=== PATIENT | female | born 1950 | race Caucasian/White ===

== ENCOUNTER → 2019-11-19 08:42 | Outpatient (BNVA) | payer MEDICARE, MEDICAID, SELFPAY | PROVIDERS: Family Provider Internal Medicine; PCP Nurse Practitioner Family; Visit Provider Internal Medicine | DX: E03.9 Hypothyroidism, unspecified (principal); E05.00 Thyrotoxicosis with diffuse goiter without thyrotoxic crisis or storm | CPT/HCPCS: 84443 ==

== ENCOUNTER 2020-03-09 20:00 | Outpatient (CLI) | payer MEDICARE, MEDICAID, SELFPAY | END 2020-03-09 20:01 | disposition home or self-care (01) | LOC: SLEEP 03-10 10:00 | PROVIDERS: Family Provider Internal Medicine; PCP Nurse Practitioner Family; Visit Provider Internal Medicine | DX: G47.10 Hypersomnia, unspecified (principal); G47.33 Obstructive sleep apnea (adult) (pediatric); R06.83 Snoring; R53.83 Other fatigue | CPT/HCPCS: 95811 ==

== ENCOUNTER 2020-05-31 08:54 | Outpatient (CLI) | payer MEDICARE, MEDICAID, SELFPAY ==
--- NOTE | 2020-05-31 09:01 | MM_ITS ---
WS: [id number] BILATERAL SCREENING DIGITAL MAMMOGRAM WITH CAD HISTORY: SCREENING COMPARISON: 12/17/2018 and 08/22/2017 Bilateral CC and MLO views submitted. Computer aided detection analyzed. Breast composition: There are scattered areas of fibroglandular density. Linear asymmetry in the mid LEFT breast just lateral to the nipple line. Not definitely visualized through the fibroglandular den sities on the lateral projection. This area has become more conspicuous overlying more recent studies . MM/[id number] IMPRESSION: BI-RADS: 0-Incomplete: Need additional imaging evaluation FOLLOW UP: Need Additional Imaging LEFT breast: Spot compression views (CC and MLO). True ML. Ultrasound to follow if abnormality persists.
== END 2020-05-31 08:55 | disposition home or self-care (01) ==
LOC: RADSHAW 08:58
PROVIDERS: PCP Internal Medicine; Visit Provider Internal Medicine
DX: Z12.31 Encounter for screening mammogram for malignant neoplasm of breast (principal); N64.89 Other specified disorders of breast
CPT/HCPCS: 77067

== ENCOUNTER → 2020-06-08 14:00 | Outpatient (BNVA) | payer MEDICARE, MEDICAID, SELFPAY | PROVIDERS: PCP Internal Medicine; Visit Provider Dermatology | DX: D48.9 Neoplasm of uncertain behavior, unspecified (principal) | CPT/HCPCS: 88304 ==

== ENCOUNTER 2020-06-28 10:11 | Outpatient (CLI) | payer MEDICARE, MEDICAID, SELFPAY ==
--- NOTE | 2020-06-28 10:18 | MM_ITS ---
WS: [id number] Left breast diagnostic digital mammogram, 06/28/2020 Clinical Data: LT BREAST ASYMMETRY Comparison: 05/31/2020, 12/17/2018, 08/22/2017, 08/06/2016, 04/18/2015, 04/06/2014, 10/10/2007. Findings: Additional left breast views with compression and mediolateral projection show no abnormal breast tis ra. The asymmetry noted on the cc view on the previous study is no longer present. Only normal breas [place] tissue [place] seen MM/[id number] Impression: 1. Negative additional views of the left breast. 2. Return to annual screening mammograms. BIRADS: 1-Negative FOLLOW UP: 1 Year Follow-up The CAD price checker was used.
== END 2020-06-28 10:12 | disposition home or self-care (01) ==
PROVIDERS: Visit Provider Internal Medicine
DX: N64.89 Other specified disorders of breast (principal)
CPT/HCPCS: 77065

== ENCOUNTER 2021-08-28 07:06 | Outpatient (CLI) | payer MEDICARE, MEDICAID, SELFPAY ==
--- NOTE | 2021-08-28 07:12 | MM_ITS ---
WS: [id number] BILATERAL DIGITAL SCREENING MAMMOGRAPHY WITH CAD CLINICAL INFORMATION: SCREENING HISTORY: Screening mammogram. No current complaints. COMPARISON: June 28, 2020 TECHNIQUE: Bilateral CC and MLO views. FINDINGS: Scattered fibroglandular densities bilaterally. Punctate and lucent centered calcifications. Vascular calcifications. No suspicious focal mass, asymmetry, calcifications, or architectural distortion. No evidence of malignancy. MM/[id number] IMPRESSION: BI-RADS: 2-Benign FOLLOW UP: 1 Year Follow-up Recommend return to annual screening mammography.
== END 2021-08-28 07:07 | disposition home or self-care (01) ==
LOC: RADSHAW 07:08
PROVIDERS: PCP Internal Medicine; Visit Provider Internal Medicine
DX: Z12.31 Encounter for screening mammogram for malignant neoplasm of breast (principal)
CPT/HCPCS: 77067

== ENCOUNTER → 2021-11-20 11:16 | Outpatient (BNVA) | payer MEDICARE, MEDICAID, SELFPAY | PROVIDERS: PCP Internal Medicine; Visit Provider Internal Medicine | DX: E04.1 Nontoxic single thyroid nodule (principal); E05.00 Thyrotoxicosis with diffuse goiter without thyrotoxic crisis or storm | CPT/HCPCS: 84443 ==

== ENCOUNTER 2021-12-30 07:08 | Emergency (ER) | payer MEDICARE, MEDICAID, SELFPAY ==
[2021-12-30 07:18] VITALS: BP 185/117; PULSE 91; RESP 16; O2SAT 95; BMI 23.6
--- NOTE | 2021-12-30 07:20 | W.ED.NEUROSD ---
HPI - Neuro Symptoms/Deficit General: Chief Complaint: Neuro Symptoms/Deficit Stated Complaint: thinks she had stroke Time Seen by Provider: 12/30/21 07:14 Source: patient Mode of arrival: ambulatory Limitations: no limitations History of Present Illness: 71-year-old female presents to the emergency room with complaints of right-sided weakness that began yesterday. She is approximately 11 hours out from onset of symptoms last night at 8:00 in the were also present at 3 AM this morning when she woke up. States they are improving some now. She denies any chest pain. Onset (ago): hour(s) Time: 07:08 Last Observed Normal: 08:00 Location: right arm, right leg and ataxia History of same: Yes Severity: mild Quality: weak Relieving factors: none Exacerbating factors: none Associated symptoms: Deny chest pain, cough, diaphoresis, fevers/chills, headache(s), anorexia, malaise, nausea, seizures, short of breath, syncope, tingling, vertigo, vomiting or weakness Treatments Prior to Arrival: none Review of Systems Const: Denies: fever(s), chills, body aches, change in appetite, malaise or diaphoresis ENMT: Denies: throat pain, ear or mastoid pain, nasal discharge or nasal congestion Card: Denies: chest pain, palpitations, irregular heart rhythm or syncope Resp: Denies: dyspnea, productive cough or non-productive cough GI: Denies: abdominal pain, nausea or vomiting : Denies: flank pain, difficulty voiding, dysuria, urinary frequency or urinary urgency Musc: Denies: neck pain or back pain Skin/Breast: Denies: rash or pruritus Neuro: Reports: weakness in extremities; Denies: headache(s) or vertigo PFSH ED PFSH: Medical History GERD (gastroesophageal reflux disease) Graves disease History of colon polyps Hypertension Sarcoidosis of lung Sinusitis, acute Thyroid nodule Surgical History Hx of foot surgery Hx of hysterectomy Hx of thyroidectomy Social History Smoking and tobacco status: never smoked Second hand smoke exposure: No Alcohol intake: never Lives independently: Yes Household members: children Marital status: Current occupational status: retired History of recent travel: No Current gender identity: Female NIH stroke score NIHSS: Level Of Consciousness - 1a: 0 Level Of Consciousness Questions - 1b: Both Correct Level Of Consciousness Commands - 1c: Both Correct Best Gaze - 2: Normal Visual [place] - 3: No Visual Loss Facial Palsy - 4: Normal Motor Arm Right - 5: Drift Motor Arm Left - 5: No Drift Motor Leg Right - 6: Drift Motor Leg Left - 6: No Drift Limb Ataxia - 7: Present In One Limb Sensory - 8: Normal Best Language - 9: No Aphasia Dysarthia - 10: Normal Extinction And Inattention - 11: 0 Score: Total Score: 3 Physical Exam Const: COMMON NORMALS: no acute distress GENERAL APPEARANCE: cooperative and comfortable ORIENTATION/CONSCIOUSNESS: Yes awake, Yes oriented to person, Yes oriented to place and Yes oriented to time HENMT: COMMON NORMALS: normocephalic, atraumatic and hearing grossly normal bilaterally HEAD & SCALP: normocephalic and atraumatic Neck/C-Spine: COMMON NORMALS: no JVD Resp: COMMON NORMALS: normal respiratory effort, No retractions, No use of accessory muscles and clear to auscultation bilaterally AUSCULTATION: clear to auscultation bilaterally Cardio: COMMON NORMALS: no JVD, regular rate, regular rhythm and No murmurs present (Cardio) RATE: regular rate RHYTHM: regular rhythm GI: COMMON NORMALS: Soft to palpation and No hepatosplenomegaly present AUSCULTATION: Yes normoactive bowel sounds PALPATION: Yes Soft to palpation, No Tenderness to palpation present (GI), No Guarding due to palpation present (GI) and Yes No hepatosplenomegaly present Extremity: COMMON NORMALS: normal to inspection, capillary refill normal, no clubbing, cyanosis or edema, no calf tenderness and no pedal edema Neuro: SENSORIUM/ORIENTATION: Yes oriented to person, Yes oriented to place and Yes oriented to time OTHER: See NIH scoring Skin: COMMON NORMALS: no rashes or lesions noted GENERAL SKIN EXAM: no rashes or lesions noted Course Vital Signs: Vital signs: Vital Signs Pulse Rate 83 12/30/21 10:21 Respiratory Rate 14 12/30/21 10:21 Blood Pressure 170/86 12/30/21 10:21 Pulse Oximetry 95 12/30/21 10:21 MDM - Neuro Symptoms/Deficit Medical Decision Making Patient is a NIH score of 3 she is well outside of any range for intervention was thrombolytics. Her score is too low for evaluation for thrombectomy. Discussed with patient options for further evaluation. Patient would like to go home. I recommend that she start on a statin she declined she says she has been on it before and has stomach upset does not want to restart them. Asked her to reconsider given stomach upset could be managed but progression to a more debilitating stroke may not be recoverable. She expressed understanding this and still declines to start the statin. We did add clopidogrel and have her stop the aspirin when she was willing to do. Her blood pressure is mildly elevated but will allow permissive hypertension at this time discussed this with her as well. Continue her current medications and follow-up with her primary care doctor within a week to reevaluate blood pressure. We will set her up for outpatient MRI echocardiogram carotid duplex and 48-hour Holter return if she has further problems or changes symptoms. Medical Records I reviewed the patient's medical records. Lab Data I reviewed the patient's lab results. : 12/30/21 07:29 12/30/21 07:[address] 12/30/21 07:21 IMPRESSION: No acute intracranial abnormality. Please note that MRI is more sensitive for early changes of acute ischemia. ASSESSMENT: ASPECTS ([place] Stroke Program Early CT Score) is 10. Chest X-Ray 12/30/21 07:33 IMPRESSION: No acute cardiopulmonary abnormality. Laboratory Results WBC 9.2 10^3/uL (4.0-10.0) 12/30/21 07: RBC 4.88 10^6/uL (4.1-5.3) 12/30/21 07: Hgb 13.9 g/dL (11.5-15.3) 12/30/21 07: Hct 42.6 % (37.0-47.0) 12/30/21: MCV 87.3 fl (81-99) 12/30/21 07: MCH 28.5 pg (28.0-34.0) 12/30/21 07: MCHC 32.6 g/dL (30.0-36.0) 12/30/21: RDW 14.8 % (12.1-15.1) 12/30/21 07: Plt Count 470 10^3/cmm (130-400) H 12/30/21 07: MPV 8.8 fL (7.4-10.4) 12/30/21 07: Neut % (Auto) 75.9 % 12/30/21 07: Lymph % (Auto) 18.4 % 12/30/21 07: [place] % (Auto) 3.8 % 12/30/21 07: Eos % (Auto) 0.1 % 12/30/21 07: Baso % (Auto) 0.2 % 12/30/21: Neut # (Auto) 7.00 10^3/uL (1.8-7.7) 12/30/21 07: Lymph # (Auto) 1.7 10^3/uL (0.8-4.8) 12/30/21 07: [place] # (Auto) 0.4 10^3/uL (0.2-0.9) 12/30/21 07: Eos # (Auto) 0.0 10^3/uL (0.0-0.8) 12/30/21 07: Baso # (Auto) 0.0 10^3/uL (0.0-0.1) 12/30/21 07: Nucleated RBC % (auto) 0 % 12/30/21: Nucleated RBCs # 0.0 /100WBC 12/30/21 07: PT 13.30 SECONDS (12.1-14.9) 12/30/21 08:09 INR 0.98 (0.8-1.2) 12/30/21 08:09 APTT 22.9 SECONDS (23.9-36.7) L 12/30/21 08:09 Sodium 142 mmol/L (136-145) 12/30/21 07: Potassium 3.3 mmol/L (3.5-5.1) L 12/30/21 07: Chloride 102 mmol/L (98-107) 12/30/21 07: Carbon Dioxide 26 mmol/L (22-29) 12/30/21 07: Anion Gap 17.3 (5-19) 12/30/21 07:29 BUN 19 mg/dL (8-23) 12/30/21 07:29 Creatinine 0.7 mg/dL (0.5-0.9) 12/30/21 07:29 GFR Calculation Not Reportable 12/30/21 07:29 Glucose 105 mg/dL (65-115) 12/30/21 07:29 POC Glucose 95 mg/dL (70-110) 12/30/21 08:14 Calculated Osmolality 297 mOsm/kg (285-295) H 12/30/21 07:29 Calcium 10.3 mg/dL (8.5-10.5) 12/30/21 07:29 Total Bilirubin 0.4 mg/dL (0.15-1.2) 12/30/21 07:29 AST 12 U/L (0-32) 12/30/21 07:29 ALT 15 U/L (0-33) 12/30/21 07:29 Alkaline Phosphatase 112 IU/L (35-105) H 12/30/21 07:29 Total Protein 7.5 g/dL (6.6-8.7) 12/30/21 07:29 Albumin 4.6 g/dL (3.5-5.2) 12/30/21 07:29 Globulin 2.9 g/dL (1.3-4.6) 12/30/21 07:29 Urine Color Yellow (Yellow) 12/30/21 08:38 Urine Appearance Clear (CLEAR) 12/30/21 08:38 Urine pH 8 (5-7) H 12/30/21 08:38 Ur Specific [place] 1.010 (1.005-1.030) 12/30/21 08:38 Urine Protein Neg (Negative) 12/30/21 08:38 Urine Glucose (UA) Norm (Normal) 12/30/21 08:38 Urine Ketones Negative (Negative) 12/30/21 08:38 Urine Blood Neg (Negative) 12/30/21 08:38 Urine Nitrate Negative (Negative) 12/30/21 08:38 Urine Bilirubin Neg (Negative) 12/30/21 08:38 Prot Sulfosalicylic Acd Negative (Negative) 12/30/21 08:38 Urine Urobilinogen Norm mg/dL (Negative) 12/30/21 08:38 Ur Leukocyte Esterase Negative (Negative) 12/30/21 08:38 Urine Opiates Screen Negative ng/mL (Negative) 12/30/21 08:38 Ur Barbiturates Screen Negative ng/mL (Negative) 12/30/21 08:38 Ur Phencyclidine Scrn Negative ng/mL (Negative) 12/30/21 08:38 Ur Amphetamines Screen Negative ng/mL (Negative) 12/30/21 08:38 U Benzodiazepines Scrn Negative ng/mL (Negative) 12/30/21 08:38 Urine Cocaine Screen Negative ng/mL (Negative) 12/30/21 08:38 U Marijuana (THC) Screen Negative ng/mL (Negative) 12/30/21 08:38 Discharge Plan Discharge Patient Disposition: Home Clinical Impression: Acute CVA (cerebrovascular accident) Condition: Stable Prescriptions: New clopidogrel 75 mg tablet 75 mg PO DAILY Qty: 30 0RF Discontinued aspirin [Adult Low Dose Aspirin] 81 mg tablet,delayed release (DR/EC) 81 mg PO DAILY 0RF No Action albuterol sulfate [Ventolin HFA] 90 mcg/actuation HFA aerosol inhaler 2 puff INHALATION Q6H PRN0RF alprazolam [Xanax] 0.25 mg tablet 0.25 mg PO .HS 0RF Calcium 600 + D(3) 600-125 mg-unit tablet 1 tab PO DAILY 0RF meloxicam 15 mg tablet 15 mg PO DAILY PRN (Reason: arthritis pain) Qty: 60 3RF pantoprazole 40 mg tablet,delayed release (DR/EC) 40 mg PO DAILY Qty: 90 3RF fluticasone propion-salmeterol [Advair Diskus] 500-50 mcg/dose blister with device 1 inh INHALATION BID Qty: 60 3RF levothyroxine 137 mcg tablet 137 mcg PO DAILY Qty: 90 0RF Incruse Ellipta 62.5 mcg/actuation blister with device 1 inh INHALATION DAILY 30 Days Qty: 30 3RF diltiazem HCl [Cardizem CD] 240 mg capsule,extended release 24hr 480 mg PO QAM Qty: 60 3RF prednisone 10 mg tablet See Rx Instructions .Route .COMPLEX Qty: 1 0RF Rx Instructions: Begin at 40 mg daily and reduce by 10 every three days till gone Dispense QS; doxycycline hyclate 100 mg capsule 100 mg PO BID Qty: 20 0RF Discharge Orders: Discharge ED (Routine); Ordered 12/30/21 Ordered By: Michael Walter Referrals: Micheal Sheppard MD [Primary Care Provider] - Discharge Diet: Usual diet Discharge Activity: Increase activity as tolerated Patient Instructions: Opioid Safety Activity Restrictions/Additional Instructions: environmental health manager will make arrangements for you to have outpatient testing including an MRI of the head, echocardiogram, carotid duplex and a Holter monitor. Stop aspirin start Plavix return to the emergency room for worsening problems Coding Level of Care Code ED Prize Fighter for [employer]
--- NOTE | 2021-12-30 07:21 | ECG_ITS ---
[facility] Test Date: 2021-12-30 Pat Name: Lilly Wyatt Department: Room: Gender: Female Inbound Sales Advisor: : 1950 Requested By: Michael Smith Order Number: [id number] Riki MD: Belgica Ramesh M.D. Measurements Intervals [place] Rate: 85 P: 48 MN: 199 QRS: -35 QRSD: 108 T: 81 QT: 370 QTc: 440 Interpretive Statements SINUS RHYTHM LEFT AXIS DEVIATION [QRS AXIS < -30] INCOMPLETE RIGHT BUNDLE BRANCH BLOCK [90+ ms QRS DURATION, TERMINAL R IN V1/V2, 40+ ms S IN I/aVL/V4/V5/V6] Compared to ECG 06/09/2018 12:24:36 First degree AV block no longer present Electronically Signed On 12-30-2021 21:58:38 CDT by Belgica Ramesh M.D. [id number]
--- NOTE | 2021-12-30 07:21 | CTR_ITS ---
PROCEDURE INFORMATION: Exam: CT Head Without Contrast Exam date and time: 12/30/2021 7:52 AM Age: 71 years old Clinical indication: Dizziness and weakness, extremity; Right; Additional info: Symptoms of acute stroke TECHNIQUE: Imaging protocol: Computed tomography of the head without contrast. Radiation optimization: All CT scans at this facility use at least one of these dose optimization techniques: automated exposure control; mA and/or kV adjustment per patient size (includes targeted exams where dose is matched to clinical indication); or iterative reconstruction. Other technique: STROKE PROTOCOL was implemented. COMPARISON: CT neck w con* [id number] 04/01/2017 5:56 AM RADIATION DOSE METRICS: Total DLP (mGy-cm): 840.92 FINDINGS: Brain: Patchy hypoattenuation in the periventricular and subcortical white matter, consistent with chronic small vessel ischemia. No CT evidence of acute ischemia. No acute hemorrhage. No mass effect. Cerebral ventricles: No ventriculomegaly. Paranasal sinuses: Visualized sinuses are unremarkable. No fluid levels. Mastoid air cells: Visualized mastoid air cells are well aerated. Bones/joints: Unremarkable. No acute fracture. Soft tissues: Unremarkable. CT/CT head wo con* [id number] IMPRESSION: No acute intracranial abnormality. Please note that MRI is more sensitive for early changes of acute ischemia. ASSESSMENT: ASPECTS ([place] Stroke Program Early CT Score) is 10.
--- NOTE | 2021-12-30 07:33 | XRR_ITS ---
PROCEDURE INFORMATION: Exam: XR Chest Exam date and time: 12/30/2021 7:40 AM Age: 71 years old Clinical indication: Cough and dyspnea; Additional info: Dyspnea/cough TECHNIQUE: Imaging protocol: XR of the chest. Views: 1 view. COMPARISON: CR Chest 1 [place] [id number] 04/01/2017 5:04 AM FINDINGS: Lungs: Streaky right basilar airspace opacity is favored to reflect atelectasis. There is also some mild perihilar scarring bilaterally. Pleural spaces: Unremarkable. No pleural effusion. No pneumothorax. Heart/Mediastinum: Unremarkable. No cardiomegaly. Bones/joints: Unremarkable. XR/XR chest 1V portable [id number] IMPRESSION: No acute cardiopulmonary abnormality.
[2021-12-30 07:43] LABS: Basophils % 0.2 %; Eosinophils % 0.1 %; Hematocrit 42.6 % (37.0-47.0); Hemoglobin 13.9 g/dL (11.5-15.3); Lymphocytes # 1.7 10^3/uL (0.8-4.8); Lymphocytes % 18.4 %; Mean Corpuscular HGB Conc 32.6 g/dL (30.0-36.0); Mean Corpuscular Hemoglobin 28.5 pg (28.0-34.0); Mean Corpuscular Volume 87.3 fl (81-99); Mean Platelet Volume 8.8 fL (7.4-10.4); Monocytes # 0.4 10^3/uL (0.2-0.9); Monocytes % 3.8 %; Neutrophils % 75.9 %; Nucleated Red Blood Cells % 0 %; Platelet Count 470 10^3/cmm (130-400); Red Blood Count 4.88 10^6/uL (4.1-5.3); Red Cell Distribution Width 14.8 % (12.1-15.1); White Blood Count 9.2 10^3/uL (4.0-10.0)
[2021-12-30 07:46] VITALS: BP 178/90
[2021-12-30 08:01] LABS: Alanine Aminotransferase 15 U/L (0-33); Albumin Level 4.6 g/dL (3.5-5.2); Alkaline Phosphatase 112 IU/L (35-105); Anion Gap 17.3 (5-19); Aspartate Amino Transferase 12 U/L (0-32); Blood Urea Nitrogen 19 mg/dL (8-23); Calcium 10.3 mg/dL (8.5-10.5); Carbon Dioxide 26 mmol/L (22-29); Chloride 102 mmol/L (98-107); Globulin 2.9 g/dL (1.3-4.6); Glucose 105 mg/dL (65-115); Osmolality Calculated 297 mOsm/kg (285-295); Potassium 3.3 mmol/L (3.5-5.1); Sodium 142 mmol/L (136-145); Total Bilirubin 0.4 mg/dL (0.15-1.2); Total Protein 7.5 g/dL (6.6-8.7)
[2021-12-30 08:17] LABS: Glucose Point of Care 95 mg/dL (70-110)
[2021-12-30 08:27] LABS: INR 0.98 (0.8-1.2)
[2021-12-30 08:28] LABS: Partial Thromboplastin Time 22.9 SECONDS (23.9-36.7)
--- NOTE | 2021-12-30 08:29 | PC.NURSE ---
Pt placed on continual cardiac, BP, and SpO2 monitoring.
[2021-12-30 09:16] LABS: Add Urine Microscopic? NO; Charge for UA Resulting for Rev
[2021-12-30 09:18] VITALS: BP 171/84; PULSE 82; RESP 13; O2SAT 93
[2021-12-30 09:24] LABS: Bilirubin Urine Neg (Negative); Blood Urine Neg (Negative); Glucose Urine UA Norm (Normal); Ketones Urine Negative (Negative); Leukocyte Esterase Urine Negative (Negative); Nitrate Urine Negative (Negative); Protein Urine Neg (Negative); Sulfosalicylic Acid Urine Negative (Negative); Urine Appearance Clear (CLEAR); Urine Color Yellow (Yellow); Urobilinogen Urine Norm (Negative); pH Urine 8 (5-7)
[2021-12-30 09:29] LABS: Amphetamines Screen Urine Negative (Negative); Barbiturates Screen Urine Negative (Negative); Benzodiazepines Screen Urine Negative (Negative); Cocaine Screen Urine Negative (Negative); Opiate Screen Urine Negative (Negative); PCP Screen Urine Negative (Negative); THC Screen Urine Negative (Negative)
[2021-12-30 10:21] VITALS: BP 170/86; PULSE 83; RESP 14; O2SAT 95
--- NOTE | 2022-01-01 14:50 | DCPLANNER ---
Addendum entered by Shaina Clemens 03/29/22 09:43: Patient had an MRI scheduled for 02.15.22 - patient did attend appointment Patient had an echo scheduled for 01.30.22 - patient did attend appointment. Addendum entered by Shaina Clemens 01/15/22 08:55: Patient had a follow up appointment scheduled for 01.08.22 for a 48 hour halter monitor - patient did attend appointment. Addendum entered by Shaina Clemens 01/11/22 14:57: Patient has the following appointments scheduled: MRI - Tuesday, February 15, 2022 at 7:15 Echo cardiogram - Sunday, January 30, 2022 at 7:00 Cartotid duplex - Sunday, January 30, 2022 at 7:00 Original Note: developer relations manager had message to schedule a followup appointment for patient for several outpatient tests. developer relations manager spoke with patient to confirm that patient wanted to have the out patient tests ordered and to confirm who patient sees for primary care. Patient stated that she wanted to have the tests ordered and that patient sees Dr. Sheppard for primary care. developer relations manager faxed out patient orders to centralized scheduling for an MRI, echo cardogram and carotid duplex to centralized scheduling, who will call patient with appointment information. developer relations manager faxed signed order for a 48 hour halter monitor to [facility], who will call patient with appointment information.
== END 2021-12-30 10:23 | disposition home or self-care (01) ==
PROVIDERS: Emergency Provider Family Medicine; PCP Internal Medicine
DX: I63.9 Cerebral infarction, unspecified (principal); I10 Essential (primary) hypertension
CPT/HCPCS: 36416; 70450; 71045; 80053; 80306; 81003; 82962; 85025; 85610; 85730; 93005; 99285

== ENCOUNTER → 2022-01-08 10:45 | Outpatient (BNVA) | payer MEDICARE, MEDICAID, SELFPAY | PROVIDERS: PCP Internal Medicine; Visit Provider Internal Medicine Cardiovascular Disease | DX: I63.512 Cerebral infarction due to unspecified occlusion or stenosis of left middle cerebral artery (principal); I49.1 Atrial premature depolarization; I49.3 Ventricular premature depolarization | CPT/HCPCS: 93225 ==

== ENCOUNTER 2022-01-30 06:02 | Outpatient (CLI) | payer MEDICARE, MEDICAID, SELFPAY ==
--- NOTE | 2022-01-30 06:07 | USCV_ITS ---
Lilly Wyatt Age: 71 Gender: F : 1950 Exam Date: 01/30/2022 06:20 Ordering Phys: Michael Walter DO Technologist: AYAN Exam Location: [facility] [place] Indication: CVA BP: 140 / 72 HR: 84 Rhythm: Sinus Technical Quality: Adequate MEASUREMENTS (Male / Female) Normal Values 2D ECHO LV Diastolic Diameter PLAX 4.5 cm 4.2 - 5.9 / 3.9 - 5.3 cm LV Systolic Diameter PLAX 2.5 cm IVS Diastolic Thickness 1.0 cm 0.6 - 1.0 / 0.6 - 0.9 cm IVS Systolic Thickness 1.3 cm LVPW Diastolic Thickness 1.0 cm 0.6 - 1.0 / 0.6 - 0.9 cm LVPW Systolic Thickness 1.3 cm RV Chamber Size 1.7 cm LVOT Diameter 2.0 cm LV Ejection Fraction 2D Teich 76.8 % LV Ejection Fraction MOD 2C 61.3 % LV Ejection Fraction 2C AL 63.8 % LA Diameter 2.4 cm LA Width 2.8 cm LA Height 3.9 cm RA Width 2.8 cm RA Height 4.5 cm Aorta at Sinotubular Diameter 2.1 cm IVC Diameter 1.4 cm M-MODE Aortic Annulus Diameter 2.6 cm LA Ao Ratio MM 0.9 DOPPLER AV Peak Velocity 210.0 cm/s LVOT Peak Velocity 140.0 cm/s AV Area Cont Eq vti 2.5 cm squared AV Area Cont Eq pk 2.2 cm squared MV Area PHT 5.0 cm squared Mitral E to A Ratio 0.6 MV E' Velocity 43.5 cm/s Mitral E to MV E' Ratio 12.0 Mitral E to LV E' Lateral Ratio 11.3 Mitral E to LV E' Septal Ratio 13.0 TR Peak Velocity 321.0 cm/s TR Peak Gradient 41.2 mmHg TV Peak E Velocity 52.0 cm/s Right Atrial Pressure 3.0 mmHg Pulmonary Artery Systolic Pressu 44.2 mmHg PV Peak Velocity 115.0 cm/s RV Acceleration Time 0.1 s RV Ejection Time 0.3 s RV AcT/ET 0.3 FINDINGS Left Ventricle Normal left ventricular size and systolic function, EF 72 %. No regional wall motion abnormalities. Mild left ventricular hypertrophy. Grade I/IV diastolic dysfunction (abnormal relaxation filling pattern), normal to mildly elevated filling pressures. Right Ventricle The right ventricle is normal in size and function. Right Atrium The right atrium is normal in size. Left Atrium The left atrium is normal in size. Mitral Valve Thickened mitral valve. Trace mitral valve regurgitation. Aortic Valve Thickened aortic valve. Aortic valve sclerosis. Tricuspid Valve Trace tricuspid valve regurgitation. Pulmonic Valve Pulmonic valve not well visualized. Pericardium Normal pericardium without effusion. Aorta Normal ascending aorta dimension. IVC The inferior vena cava appears to be of normal size CONCLUSIONS Normal left ventricular size and systolic function, EF 72 %. No regional wall motion abnormalities. Mild left ventricular hypertrophy. Grade I/IV diastolic dysfunction (abnormal relaxation filling pattern), normal to mildly elevated filling pressures. Minimally thickened aortic and mitral valves. Features of aortic valve sclerosis. Trace of mitral and tricuspid regurgitation. There is no pericardial effusion. There are no intracardiac masses. Mild pulmonary hypertension with an estimated pulmonary artery peak systolic pressure of 44 mmHg Compared to the study from 04/11/2017, the pulmonary pretension appears to be new. However because of poor Doppler signals, exact comparison is difficult Dr Belgica Ramesh MD [facility] (Electronically Signed) Final Date: 31 January 2022 08:35 S
--- NOTE | 2022-01-30 06:09 | USCV_ITS ---
Lilly Wyatt Age: 71 Gender: F : 1950 Exam Date: 01/30/2022 06:48 Ordering Phys: Micheal Sheppard MD Technologist: AYAN [place] [facility] [place]: CVA Risk Factors: Previous Vascular Surgery: Right Brachial BP: / Left Brachial BP: / Right Left Velocity (cm/s) Spectral Plaque Velocity (cm/s) Spectral Plaque Syst/Diast Broadening Syst/Diast Broadening 108.10/15.40 Prox CCA 133.70/ 15.10 120.50/17.60 Mid CCA 115.70/ 17.10 111.60/27.10 Distal CCA 89.40 / 14.50 89.20/ 19.70 Prox ICA 71.10 / 15.00 86.60/ 18.90 Mid ICA 70.80 / 17.70 93.00/ 17.80 Distal ICA 76.10 / 18.60 113.70 ECA 103.20 0.77 ICA/CCA 0.66 Antegrade Vertebral Antegrade 31.20/ 5.20 cm/s 89.40/ 19.70 cm/s Bi Subclavian Bi 157.8 133.6 0 0 CONCLUSIONS Right ICA stenosis <50%. Tortous right cervical ICA Left ICA stenosis <50%. Normal antegrade Doppler flow noted in the right vertebral artery. Normal antegrade Doppler flow noted in the left vertebral artery. Matthew West MD (Electronically Signed) Final Date: 30 January 2022 10:20 S
== END 2022-01-30 06:03 | disposition home or self-care (01) ==
LOC: RAD 06:03
PROVIDERS: PCP Internal Medicine; Visit Provider Family Medicine
DX: I63.512 Cerebral infarction due to unspecified occlusion or stenosis of left middle cerebral artery (principal); I65.23 Occlusion and stenosis of bilateral carotid arteries
CPT/HCPCS: 93306; 93880

== ENCOUNTER 2022-02-15 06:42 | Outpatient (CLI) | payer MEDICARE, MEDICAID, SELFPAY ==
--- NOTE | 2022-02-15 07:15 | MR_ITS ---
WS: [id number] MRI BRAIN WITHOUT CONTRAST HISTORY: Worsened CVA COMPARISON: Noncontrast CT head 12/30/2021 TECHNIQUE: Diffusion imaging, multiplanar T1, T2 and FLAIR imaging obtained. Diffusion-weighted abnormality centered in the posterior limb of the LEFT internal capsule. Diffusion -weighted images are abnormal. ADC map is of increased signal as are the T2 sequences. This suggests a subacute infarct of at least several weeks old. No associated hemorrhage with this infarct. There is mild cerebral atrophy and volume loss. More extensive T2 and FLAIR signal hyperintensities s cattered in the subcortical white matter in the periventricular white matter. Mild ischemic changes i n the LEFT cynthia. Ventricles and extra-axial spaces are normal. No inferior displacement of cerebellar tonsils. The sella turcica and pituitary gland are unremarkabl e. Dural venous sinuses and [place] of [place] demonstrate no abnormality on this unenhanced studies. Paranasal sinuses: Moderate bilateral mucoperiosteal thickening in the maxillary sinuses. There is mi ld mucoperiosteal thickening throughout the remaining sinuses. Mastoid air cells: Normal. Calvarium and scalp: Intact. MR/MR head wo con* [id number] IMPRESSION: 1. No acute infarct or hemorrhage. 2. Small subacute infarct posterior limb of the LEFT internal capsule. 3. Moderate small vessel ischemic changes throughout the white matter. 4. Paranasal sinus disease, greatest involving the maxillary sinuses.
== END 2022-02-15 06:43 | disposition home or self-care (01) ==
LOC: RAD 06:44
PROVIDERS: PCP Internal Medicine; Visit Provider Internal Medicine
DX: I63.512 Cerebral infarction due to unspecified occlusion or stenosis of left middle cerebral artery (principal); J32.4 Chronic pansinusitis
CPT/HCPCS: 70551

== ENCOUNTER → 2022-06-06 09:15 | Outpatient (BNVA) | payer MEDICARE, MEDICAID, SELFPAY | PROVIDERS: PCP Family Medicine; Visit Provider Family Medicine | DX: R35.0 Frequency of micturition (principal); E05.00 Thyrotoxicosis with diffuse goiter without thyrotoxic crisis or storm; I10 Essential (primary) hypertension; I63.512 Cerebral infarction due to unspecified occlusion or stenosis of left middle cerebral artery; Z23 Encounter for immunization; F33.0 Major depressive disorder, recurrent, mild; J34.89 Other specified disorders of nose and nasal sinuses; D86.0 Sarcoidosis of lung; G47.33 Obstructive sleep apnea (adult) (pediatric); I49.9 Cardiac arrhythmia, unspecified | CPT/HCPCS: 80053; 80061; 81000; 84439; 84443; 85025 ==

== ENCOUNTER → 2022-07-27 08:33 | Outpatient (BNVA) | payer MEDICARE, MEDICAID, SELFPAY | PROVIDERS: PCP Family Medicine; Visit Provider Family Medicine | DX: E05.00 Thyrotoxicosis with diffuse goiter without thyrotoxic crisis or storm (principal); H66.92 Otitis media, unspecified, left ear; D86.0 Sarcoidosis of lung; F33.0 Major depressive disorder, recurrent, mild; I10 Essential (primary) hypertension; Z12.31 Encounter for screening mammogram for malignant neoplasm of breast; E03.8 Other specified hypothyroidism | CPT/HCPCS: 84443 ==

== ENCOUNTER 2022-08-31 08:41 | Outpatient (CLI) | payer MEDICARE, MEDICAID, SELFPAY ==
--- NOTE | 2022-08-31 08:50 | MM_ITS ---
WS: [id number] Bilateral screening 3D tomosynthesis digital mammogram, 08/31/2022 Clinical Data: breast cancer screening Comparison: 08/28/2021, 06/28/2020, 05/31/2020, 12/17/2018, 08/22/2017, 08/06/2016, 04/18/2015, 04/06/2014. Findings: The breast parenchymal pattern shows fibroglandular tissue. There are mole markers on both breasts. N o spiculated masses or clustered calcifications are seen. There are no secondary signs of carcinoma. MM/[place] [id number] Impression: 1. Negative bilateral mammogram unchanged. 2. Recommend annual screening mammograms. BIRADS: 1-Negative FOLLOW UP: 1 Year Follow-up The CAD title checker was used.
== END 2022-08-31 08:42 | disposition home or self-care (01) ==
LOC: RAD 08:42
PROVIDERS: PCP Family Medicine; Visit Provider Family Medicine
DX: Z12.31 Encounter for screening mammogram for malignant neoplasm of breast (principal)
CPT/HCPCS: 77063; 77067

== ENCOUNTER 2022-12-04 13:02 | Outpatient (CLI) | payer MEDICARE, MEDICAID, SELFPAY ==
--- NOTE | 2022-12-04 13:17 | XR_ITS ---
WS: [id number] SCREENING DEXA SCAN [facility] CLINICAL INFORMATION: postmenopausal screening COMPARISON: None. FINDINGS: The L1-L4 bone mineral density measures 1.390 g/cm2. This corresponds to a T score score of 1.7 and Z score of 3.5. Left femoral neck bone mineral density measures 0.938 g/cm2. This corresponds to a T score of -0.6 an d Z score of 1.1. Right femoral neck bone mineral density measures 0.931 g/cm2. This corresponds to a T score -0.6of an d Z score of 1.0. Mean femoral neck bone mineral density measures 0.935 g/cm2. This corresponds to a T score of -0.6 an d Z score of 1.0. XR/XR DEXA axial skeleton* [id number] IMPRESSION: Normal bone mineralization. Patient's FRAX calculated 10 year probability for major osteoporotic fracture i s 13.3 % and osteoporotic hip fracture is 3.6%.
== END 2022-12-04 13:03 | disposition home or self-care (01) ==
LOC: RAD 13:06
PROVIDERS: PCP Family Medicine; Visit Provider Family Medicine
DX: Z13.820 Encounter for screening for osteoporosis (principal); Z78.0 Asymptomatic menopausal state
CPT/HCPCS: 77080

== ENCOUNTER → 2023-04-26 10:05 | Outpatient (BNVA) | payer MEDICARE, MEDICAID, SELFPAY | PROVIDERS: PCP Family Medicine; Visit Provider Family Medicine | DX: E05.00 Thyrotoxicosis with diffuse goiter without thyrotoxic crisis or storm (principal); F33.0 Major depressive disorder, recurrent, mild; I10 Essential (primary) hypertension; H93.12 Tinnitus, left ear; D86.0 Sarcoidosis of lung; K21.9 Gastro-esophageal reflux disease without esophagitis; I49.8 Other specified cardiac arrhythmias; G47.33 Obstructive sleep apnea (adult) (pediatric); S01.81XA Laceration without foreign body of other part of head, initial encounter; X58.XXXA Exposure to other specified factors, initial encounter | CPT/HCPCS: 80053; 80061; 84439; 84443; 85025 ==

== ENCOUNTER 2023-08-04 10:27 | Emergency (ER) | payer MEDICARE, MEDICAID, SELFPAY ==
[2023-08-04] VITALS (11 sets, daily range): BP systolic 159–178; BP diastolic 55–90; PULSE 65–90; RESP 14–26; TEMP 36.6; O2SAT 96–99; BMI 23.3
--- NOTE | 2023-08-04 10:36 | XRR_ITS ---
PROCEDURE INFORMATION: Exam: XR Right Shoulder Exam date and time: 08/04/2023 11:06 AM Age: 73 years old Clinical indication: Injury or trauma; Fall; Blunt trauma (contusions or hematomas); Shoulder; Right; Additional info: Fall/pain TECHNIQUE: Imaging protocol: Radiologic exam of the right shoulder. Views: 2 or more views. COMPARISON: CR XR chest 1V portable [id number] 12/30/2021 7:40 AM FINDINGS: Bones/joints: There is an anterior glenohumeral joint dislocation. There is an avulsion fracture involving the posterolateral aspect of the humeral head with a large fracture fragment present. (the fracture fragment measures 25 mm x 10 mm) Soft tissues: Soft tissue effusion is seen in the shoulder XR/XR shoulder RT min 2V* [id number] IMPRESSION: 1. There is anterior glenohumeral joint fracture dislocation. 2. Soft tissue effusion is seen in the joint space.
--- NOTE | 2023-08-04 10:39 | W.ED.FALL ---
HPI - Fall General: Chief Complaint: Fall Stated Complaint: fall, right shoulder pain Time Seen by Provider: 08/04/23 10:36 History of Present Illness: 73-year-old female presents emergency department with complaints of right shoulder pain after an accidental fall approximately 45 minutes prior to arrival. She states she has had a stroke previously and has right-sided lower limb residual weakness and states that her right leg will give out sometimes. She states it gave out this morning and she fell to the ground hitting her right shoulder onto the ground. She states that since that time she has been able to move her shoulder and has had significant 10 out of 10 pain. She denies numbness or tingling to the extremity. She states attempting to move her shoulder makes the pain much worse and nothing seems to make it better. She denies loss of consciousness. Review of Systems General: Reports: 10 or more systems reviewed and unremarkable except in HPI and below Musc: Reports: extremity pain and joint pain PFSH ED PFSH: Medical History Arrhythmia Chronic GERD GERD (gastroesophageal reflux disease) Graves disease History of colon polyps History of CVA (cerebrovascular accident) Hypertension Sarcoidosis of lung Stroke Stroke Thyroid nodule Surgical History Hx of foot surgery Hx of hysterectomy Hx of thyroidectomy Family History Grandfather CAD (coronary artery disease) Cancer lung cancer Diabetes Hyperlipidemia Grandmother Diabetes Hyperlipidemia Father Hyperlipidemia Lung disease Mother Hyperlipidemia Hypertension Denies family history of Clotting disorder Dementia Chronic kidney disease (CKD) Anesthesia complication Bleeding disorder Stroke Social History Smoking and tobacco/nicotine status: never used tobacco/nicotine Second hand smoke exposure: No Alcohol intake: never Substance/Drug Use: never Adopted: No Caregiver/support person: No Lives independently: Yes Household members: children Marital status: Current occupational status: retired Current gender identity: Female Physical Exam Narrative: EXAM NARRATIVE: Constitutional: the patient appears well nourished and with normal development. Vital signs reviewed as documented. Obvious distress with acute pain to the right shoulder. HENMT: Normocephalic, atraumatic. Extermal ears with normal appearance without drainage. Nose without drainage, normal appearance. Mucus membranes moist. Neck is supple, No jugular venous distension, trachea is midline, no appreciable carotid bruits. No lymphadenopathy. No meningeal signs. Flexion, extension and lateral rotation is without pain. Eyes: Pupils are equal, round, reactive to light and accommodation. No scleral icterus. Extra-ocular movement are intact. Thorax is symmetrical and with equal rise and fall with respirations. Resp: Lungs are clear to auscultation. No wheezes, rales, crackles or ronchi at present. Cardio: Regular rate and rhythm. Positive S1, S2. No appreciable murmurs, rubs or gallops. GI: Abdominal exam reveals normal bowel sounds to all quadrants. No organomegaly. No obvious palpable masses noted. No hepatomegally appreciated. Soft, nontender to palpation. Extremity: Extremities are non-edematous and both femoral and pedal pulses are 2+ and equal bilaterally. Moves all extremities well, sensation in all extremities. Neuro: Alert and oriented x4, person, place, time and situation. Cranial nerves II through XII are grossly intact, there is no focal neurological deficits that I can appreciate at present. Motor strength in the right lower extremity is 3 out of 5, with the remaining extremities with motor strength 5/5. Psych: Cooperative, calm, normal thought process, appropriate judgment. Skin: No lesions, rashes. No gross abnormalities noted. Patient does have superficial abrasions to her right hand dorsal aspect. Back: Symmetrical, no obvious deformity, No CVA tenderness Course ED course: I contacted the orthopedic physician Dr. Bridges and discussed the patient's case with him and advised him of the large fracture and fragment, he advised to attempt conscious sedation and closed reduction and if we were not successful that he would consider taking her to have it corrected. PROCEDURE: PROCEDURAL SEDATION The risks and benefits of procedural sedation, as well as other alternatives were explained to the patient and/or guardian. The reason was to alleviate the patient's pain during the procedure. The potential adverse reactions discussed were apnea ( stop breathing ), allergic reaction, vomiting, hypotension, and even possibly . Other possible alternatives were discussed and then informed consent was then obtained. Prior to the start of the procedure a timeout was performed. Verification of the right patient, right procedure, consent signed, correct side and that all necessary equipment was functional and present was performed. The patient was placed on a monitor as well as end-tidal CO2 monitor, oxygen via nasal cannula. The vital signs are stable prior to the procedure. We made sure all the necessary equipment, including crash cart, defibrillator, airway box, and suction were readily available. The patient was continuously monitored after I administered the following medications for conscious sedation -Versed 2 mg IV push and propofol 80 mg IV push. The patient appeared to have adequate sedation and underwent the procedure well. At the end of the procedure the patient was observed, to ensure that the patient was fully awake and was back at the patient's baseline regarding respiratory status and mental status. The intra-service time for this procedure was 16 minutes. PROCEDURE - shoulder reduction: RIGHT Informed consent was obtained, after the risks, complications and benefits explained and the patient verbalized u understanding of all information provided as related to the procedure. A time out was completed per department/hospital policy. Verified correct patient, side, procedure, and consent was signed. This patient underwent a shoulder reduction. Utilizing procedural sedation, I made the patient comfortable and then used gentle traction as well as abduction of the upper arm and counter traction, which then allow the shoulder to easily reduced back into place. Before and after the procedure the distal neuro-circulatory status remained intact. The patient was placed in a sling for comfort. There is evidence of fracture noted on the pre-procedure xray and post-procedural x-ray. Post-procedure xray demonstrates successful reduction. Patient was given instructions about keeping the elbow by the side, in the sling and the appropriate Orthopedic follow-up and the need for follow-up with their primary care physician or their orthopedist. Reevaluation(s): Reevaluation #1: Reevaluation of the patient after she received IV pain medication she states that she has improved pain control but her pain is still a 4 out of 10. I did advise her of the need for conscious sedation and closed reduction of her right displaced and fractured humerus and she stated that she understood all the risk benefits and possible complications and has been consented for the procedure. Time: 12:28 Vital Signs: Vital signs: Vital Signs Temperature 97.8 F 08/04/23 10:33 Pulse Rate 89 08/04/23 14:38 Respiratory Rate 22 H 08/04/23 13:55 Blood Pressure 165/81 08/04/23 14:38 Pulse Oximetry 97 08/04/23 14:38 Oxygen Delivery Me thod Room Air 08/04/23 10:33 MDM - Fall Medical Decision Making Physical exam completed and documented, I will obtain radiographic examination of the patient's right shoulder with 3 views including a Y view to evaluate for dislocation. I suspect most likely given the patient's inability to move her right upper extremity without significant pain that she has either a proximal humerus fracture or a dislocated humerus. I will provide medication for pain control and ultimately provide conscious sedation with closed reduction of her shoulder if it is dislocated. I will have her follow-up with primary care and orthopedics after discharge today. Medical Records I reviewed the patient's medical records. Lab Data Radiology Impressions Shoulder X-Ray 08/04/23 10:36 IMPRESSION: 1. There is anterior glenohumeral joint fracture dislocation. 2. Soft tissue effusion is seen in the joint space. All radiology interpretation(s) finalized by discharge Discharge Plan Discharge Patient Disposition: Home Clinical Impression: Closed dislocation of right shoulder Qualifiers: Encounter type: initial encounter Qualified Code(s): S43.004A - Unspecified dislocation of right shoulder joint, initial encounter Accidental fall Qualifiers: Encounter type: initial encounter Qualified Code(s): W19.XXXA - Unspecified fall, initial encounter Closed right humeral fracture Qualifiers: Encounter type: initial encounter Humerus Location: medial condyle Fracture alignment: displaced Qualified Code(s): S42.461A - Displaced fracture of medial condyle of right humerus, initial encounter for closed fracture Condition: Stable Prescriptions: New hydrocodone-acetaminophen 7.5-325 mg tablet 1 tab PO Q8H PRN (Reason: pain) Qty: 14 0RF No Action ascorbate calcium (vitamin C) 500 mg tablet 500 mg PO DAILY fluticasone propionate [Flonase Allergy Relief] 50 mcg/actuation spray,suspension 2 spray intranasal DAILY Qty: 16 0RF Rx Instructions: administer into each nostril All Day Allergy (cetirizine) 10 mg capsule 10 mg PO DAILY Qty: 90 0RF levothyroxine 125 mcg tablet 125 mcg PO DAILY Qty: 90 2RF (DME) electric motorized scooter See Rx Instructions .Route .MEDSUPPLY Qty: 1 0RF Rx Instructions: As directed diltiazem HCl 360 mg capsule,extended release 24hr 720 mg PO QAM Qty: 180 1RF Incruse Ellipta 62.5 mcg/actuation blister with device 1 inh INHALATION DAILY 30 Days Qty: 30 3RF ezetimibe 10 mg tablet 10 mg PO DAILY Qty: 90 1RF pantoprazole 40 mg tablet,delayed release (DR/EC) 40 mg PO DAILY Qty: 90 1RF citalopram 20 mg tablet 20 mg PO DAILY Qty: 90 1RF Calcium + D 600 mg-5 mcg (200 unit) Tablet 1 tab PO DAILY clopidogrel 75 mg tablet 75 mg PO QPM Advair Diskus 500-50 mcg/dose blister with device 1 inh inhalation BID losartan 25 mg tablet 25 mg PO DAILY Discharge Orders: Discharge ED (Routine); Ordered 08/04/23 Ordered By: Rufus Kay Referrals: Duarte Bridges DO [Physician] - Sánchez Chi MD [Primary Care Provider] - Discharge Diet: Advance as tolerated Discharge Activity: Resume usual activity Patient Instructions: Opioid Safety, Pain Management Activity Restrictions/Additional Instructions: Activity Restrictions/Additional Instructions: Thank you for choosing [facility] for your healthcare needs today. Please realize that you were seen in the Emergency Department and that we are providing you with an emergency medical screening exam and this may not be a complete and all inclusive of all the testing and or medical work-up that you may need to determine your ailment or severity of your illness. It is very important that you follow-up as instructed with your Primary care provider or Specialist for additional evaluation and to discuss your medical treatment plan. You may return to the Emergency Department should you have concerns or if your condition changes or worsens in any way. Coding Level of Care Code ED Core Winding Operator for [facility] Muse
[2023-08-04] MEDS: morphine 4 mg/mL SDV 1 mL IVP (10:55)
[2023-08-04] MEDS: ondansetron 2 mg/ML SDV 2 mL 4 MG IVP (10:55)
--- NOTE | 2023-08-04 12:38 | XR_ITS ---
WS: [id number] Exam: XR shoulder RT min 2V* [id number] Date/Time of Exam: 08/04/2023 12:40 PM Reason For Exam: Post-reduction Comparison 08/04/2023 at 11:08 a.m. Apparent reduction of previously noted anterior shoulder dislocation. No Y view available for confirm ation. Incompletely visualized avulsion of the greater tuberosity of the humerus. Mild degenerative c hanges. IMPRESSION: 1. Apparent reduction of previously noted anterior dislocation. No Y view available for confirmation. Partially visualized humeral head fracture.
[2023-08-04] MEDS: sodium chloride 0.9% 1,000 ML 999 ML IV (13:05)
[2023-08-04] MEDS: midazolam 1 mg/mL INJ 2 mL 4 MG IVP (13:10)
[2023-08-04] MEDS: propofol 10 mg/mL SDV 20 mL 200 MG IVP (13:11)
== END 2023-08-04 14:40 | disposition home or self-care (01) ==
PROVIDERS: Emergency Provider Internal Medicine; PCP Family Medicine
DX: S42.461A Displaced fracture of medial condyle of right humerus, initial encounter for closed fracture (principal); S43.004A Unspecified dislocation of right shoulder joint, initial encounter; Z79.02 Long term (current) use of antithrombotics/antiplatelets; Z86.73 Personal history of transient ischemic attack (TIA), and cerebral infarction without residual deficits; I10 Essential (primary) hypertension; W18.39XA Other fall on same level, initial encounter
CPT/HCPCS: 73030; 96361; 96374; 96375; 99285; J2250; J2270; J2405; J2704; J7030

== ENCOUNTER → 2023-08-14 09:11 | Outpatient (BNVA) | payer MEDICARE, MEDICAID, SELFPAY | PROVIDERS: PCP Family Medicine; Visit Provider Specialist | DX: S42.251A Displaced fracture of greater tuberosity of right humerus, initial encounter for closed fracture; S42.91XA Fracture of right shoulder girdle, part unspecified, initial encounter for closed fracture; W17.89XA Other fall from one level to another, initial encounter; Z46.89 Encounter for fitting and adjustment of other specified devices; M25.511 Pain in right shoulder | CPT/HCPCS: 24530; 73030; 97760; 99214; L3670 ==

== ENCOUNTER 2023-08-14 10:47 | Outpatient (CLI) | payer MEDICARE, MEDICAID, SELFPAY | END 2023-08-14 10:48 | disposition home or self-care (01) | LOC: SPT 10:47 | PROVIDERS: PCP Family Medicine; Visit Provider Specialist | DX: Z46.89 Encounter for fitting and adjustment of other specified devices (principal); M25.511 Pain in right shoulder | CPT/HCPCS: 24530; 97760; 99214; L3670 ==

== ENCOUNTER → 2023-09-04 08:40 | Outpatient (BNVA) | payer MEDICARE, MEDICAID, SELFPAY | PROVIDERS: PCP Family Medicine; Visit Provider Specialist | DX: S42.252D Displaced fracture of greater tuberosity of left humerus, subsequent encounter for fracture with routine healing; S42.91XD Fracture of right shoulder girdle, part unspecified, subsequent encounter for fracture with routine healing; W19.XXXD Unspecified fall, subsequent encounter | CPT/HCPCS: 73030; 99024 ==

== ENCOUNTER → 2023-11-13 09:01 | Outpatient (BNVA) | payer MEDICARE, MEDICAID, SELFPAY | PROVIDERS: PCP Family Medicine; Visit Provider Specialist | DX: S42.91XD Fracture of right shoulder girdle, part unspecified, subsequent encounter for fracture with routine healing (principal); S42.251D Displaced fracture of greater tuberosity of right humerus, subsequent encounter for fracture with routine healing; W19.XXXA Unspecified fall, initial encounter | CPT/HCPCS: 73030; 99213 ==

== ENCOUNTER → 2024-02-28 08:14 | Outpatient (BNVA) | payer MEDICARE, MEDICAID, SELFPAY | PROVIDERS: PCP Family Medicine; Visit Provider Family Medicine | DX: E05.00 Thyrotoxicosis with diffuse goiter without thyrotoxic crisis or storm (principal); F33.0 Major depressive disorder, recurrent, mild; E03.9 Hypothyroidism, unspecified; I10 Essential (primary) hypertension; G47.33 Obstructive sleep apnea (adult) (pediatric); R26.89 Other abnormalities of gait and mobility; D86.0 Sarcoidosis of lung; K21.9 Gastro-esophageal reflux disease without esophagitis; I49.8 Other specified cardiac arrhythmias | CPT/HCPCS: 80053; 84439; 84443; 85025 ==

== ENCOUNTER → 2024-06-01 08:50 | Outpatient (BNVA) | payer MEDICARE, MEDICAID, SELFPAY | PROVIDERS: PCP Family Medicine; Visit Provider Podiatrist Foot & Ankle Surgery | DX: M79.671 Pain in right foot (principal); M79.672 Pain in left foot; M20.21 Hallux rigidus, right foot; M20.22 Hallux rigidus, left foot; M21.611 Bunion of right foot; M21.612 Bunion of left foot | CPT/HCPCS: 73630; 99203 ==

== ENCOUNTER → 2024-09-07 07:09 | Outpatient (BNVA) | payer MEDICARE, MEDICAID, SELFPAY | PROVIDERS: PCP Family Medicine; Visit Provider Podiatrist Foot & Ankle Surgery | DX: M20.20 Hallux rigidus, unspecified foot (principal); M21.6X1 Other acquired deformities of right foot; M21.611 Bunion of right foot; M21.612 Bunion of left foot; M79.671 Pain in right foot; M79.672 Pain in left foot; M20.21 Hallux rigidus, right foot; M20.22 Hallux rigidus, left foot | CPT/HCPCS: 99214 ==

== ENCOUNTER 2024-10-23 06:32 | Day surgery (SDC) | payer MEDICARE, MEDICAID, SELFPAY ==
[2024-10-23] VITALS (10 sets, daily range): BP systolic 113–138; BP diastolic 59–76; PULSE 64–72; RESP 10–20; TEMP 36.2–36.6; O2SAT 92–97; BMI 22.7
--- NOTE | 2024-10-23 | XR_ITS ---
WS: [id number] XR foot RT min 3V* [id number] REASON FOR EXAM: VERA PICS FINDINGS: Instrumented arthrodesis of the PIP joints of the second and third toes and plate and screw arthrodesis of the first MTP joint. Surgical appliances are intact and in proper position and alignment. XR/XR foot RT min 3V* [id number] IMPRESSION: Multiple foot arthrodeses as above.
--- NOTE | 2024-10-23 06:40 | ANES.PREANE2 ---
Pre-Anesthetic Assessment Height/Weight: Height 5 ft 7 in Preop Diagnosis: Right bunion and ankle equinus. Operation Date: 10/23/24 08:00 Proposed Procedures p Bunionectomy Weiss(Right) - Geovani Prater DPM s Gastrocnemius Recession(Right) - Geovani Prater DPM Anesthetic Plan Other: No prior issues with anesthesia NPO since yesterday evening History of hypothyroidism on Synthroid Hypertension on losartan and diltiazem GERD on Protonix KD Prior CVA Echo 2021 showing EF 72% Plan for Medications/Allergies Home Medications ?Medication ?Instructions ?Recorded ?Confirmed ?Last Taken ?Type ascorbate calcium (vitamin C) 500 500 mg PO DAILY 06/06/22 10/22/24 10/22/24 History mg tablet cetirizine 10 mg capsule (All Day 10 mg PO DAILY #90 caps 06/06/22 10/22/24 10/22/24 Rx Allergy (cetirizine)) fluticasone propionate 50 2 spray intranasal DAILY #16 grams 06/06/22 10/22/24 10/22/24 Rx mcg/actuation nasal spray,suspension (Flonase Allergy Relief) electric motorized scooter #1 ea 01/24/23 09/07/24 Unknown Rx calcium 600 mg (as 1 tab PO DAILY 08/04/23 10/22/24 10/22/24 History carbonate)-vitamin D3 5 mcg (200 unit) tablet shoulder immobilizer #1 ea 08/14/23 09/07/24 Unknown Rx RIGHT ankle AFL hard plastic brace #1 ea 08/29/23 09/07/24 Unknown Rx levothyroxine 125 mcg tablet 125 mcg PO DAILY #90 tabs 03/03/24 10/22/24 10/22/24 Rx citalopram 40 mg tablet 40 mg PO DAILY #90 tabs 05/07/24 10/22/24 10/22/24 Rx ezetimibe 10 mg tablet 10 mg PO DAILY #90 tabs 05/11/24 10/22/24 10/22/24 Rx diclofenac sodium 1 % topical gel 2 g topical BID 30 days #100 grams 06/02/24 10/22/24 Unknown Rx (Voltaren Arthritis Pain) pantoprazole 40 mg tablet,delayed 40 mg PO DAILY #90 tabs 06/11/24 10/22/24 10/22/24 Rx release umeclidinium 62.5 mcg/actuation 1 inh inhalation DAILY 30 days #30 08/11/24 10/22/24 10/22/24 Rx blister powder for inhalation ea (Incruse Ellipta) fluticasone propionate 115 2 puff inhalation BID #12 grams 10/12/24 10/22/24 10/22/24 Rx mcg-salmeterol 21 mcg/actuation HFA inhaler (Advair HFA) clopidogrel 75 mg tablet 75 mg PO DAILY 10/22/24 10/22/24 10/05/24 History diltiazem HCl 360 mg 720 mg PO DAILY 10/22/24 10/22/24 10/22/24 History capsule,extended release 24 hr losartan 25 mg tablet 25 mg PO DAILY 10/22/24 10/22/24 10/22/24 History Allergies Allergy/AdvReac Type Severity Reaction Status Date / Time Tetanus Vaccines and Toxoid Allergy Unknown Unknown Verified 09/07/24 07:12 mepivacaine (From Carbocaine) Allergy unknown Verified 09/07/24 07:12 Penicillins Allergy ALGY-Rash Verified 09/07/24 07:12 Sulfa (Sulfonamide Allergy ALGY-Rash Verified 09/07/24 07:12 Antibiotics) tetanus toxoid, adsorbed Allergy ALGY-Anaphy Verified 09/07/24 07:12 laxis [facility] Anesthesia Medical History Hypothyroidism Stroke Chronic GERD History of CVA (cerebrovascular accident) Arrhythmia Stroke GERD (gastroesophageal reflux disease) Hypertension Graves disease Sarcoidosis of lung Thyroid nodule History of colon polyps Surgical History Hx of thyroidectomy Hx of hysterectomy Hx of foot surgery Family History Grandfather CAD (coronary artery disease) Cancer lung cancer Diabetes Hyperlipidemia Grandmother Diabetes Hyperlipidemia Father Hyperlipidemia Lung disease Mother Hyperlipidemia Hypertension Denies family history of Clotting disorder Dementia Chronic kidney disease (CKD) Anesthesia complication Bleeding disorder Stroke Social History Smoking and tobacco/nicotine status: never used tobacco/nicotine Second hand smoke exposure: No Alcohol intake: never Substance/Drug Use: never Adopted: No Caregiver/support person: No Lives independently: Yes Household members: children Marital status: Current occupational status: retired Current gender identity: Female Data Anesthesia Cardiac Studies: Echocardiogram 01/30/22 Holter Monitor 01/08/22
[2024-10-23] MEDS: sodium chloride 0.9% 1,000 ML 30 ML IV (06:58)
[2024-10-23 07:09] LABS: Basophils # 0.1 10^3/uL (0.0-0.1); Basophils % 1.1 %; Eosinophils # 0.2 10^3/uL (0.0-0.8); Eosinophils % 2.7 %; Hematocrit 38.9 % (36-47); Lymphocytes # 1.3 10^3/uL (0.8-4.8); Lymphocytes % 17.8 %; Mean Corpuscular HGB Conc 32.1 g/dL (30-55); Mean Platelet Volume 8.8 fL (7.4-10.4); Monocytes # 0.5 10^3/uL (0.2-0.9); Monocytes % 6.6 %; Neutrophils % 71.7 %; Nucleated Red Blood Cells % 0 %; Platelet Count 366 10^3/cmm (157-399); Red Blood Count 4.47 10^6/uL (3.85-5.65); White Blood Count 7.12 10^3/uL (3.29-11.43)
--- NOTE | 2024-10-23 07:18 | PM.OPSURHP ---
Providers/Chief Complaint Primary Care Provider: Sánchez Chi MD Chief Complaint: M20.22 History of Present Illness Lilly Wyatt is a 74 year old female presenting with follow-up care for bilateral bunion pain, with the right foot being the more symptomatic. She has a history of cerebral vascular accident, for which she uses a quad cane for ambulation and an ankle-foot orthosis (AFO) on the right side. The left bunion continues to cause discomfort due to friction with footwear. The right foot presents with significant bunion deformity with additional complaints of joint buckling and stiffness, consistent with hallux rigidus, as well as visible bony spurs and potential early-stage arthritis. The patient has tried wearing specialized shoes with padding and spacing to no avail. Previous medical advice encompassed conservative measures, yet these have proven insufficient for symptom management. Additionally, the patient has developed equinus deformity post-stroke, complicating gait and load distribution across the foot. She currently experiences difficulty with dorsiflexion due to Achilles tendon tightness. Review of Systems General: Reports: 10 or more systems reviewed and unremarkable except in HPI and below Const: Denies: fever(s) or chills Eyes: Denies: change in vision Card: Denies: chest pain or palpitations Resp: Denies: dyspnea or productive cough GI: Denies: abdominal pain, nausea or vomiting : Denies: flank pain Musc: Reports: extremity pain, joint pain, joint stiffness, limited range of motion and deformity Skin/Breast: Reports: skin tenderness; Denies: rash Neuro: Reports: difficulty walking; Denies: numbness in extremities, sensory changes or frequent falls Psych: Denies: suicidal ideation Arsenio/Lymph: Denies: easy bruising Medications/Allergies Home Medications ?Medication ?Instructions ?Recorded ?Confirmed ?Last Taken ?Type ascorbate calcium (vitamin C) 500 500 mg PO DAILY 06/06/22 10/22/24 10/22/24 History mg tablet cetirizine 10 mg capsule (All Day 10 mg PO DAILY #90 caps 06/06/22 10/22/24 10/22/24 Rx Allergy (cetirizine)) fluticasone propionate 50 2 spray intranasal DAILY #16 grams 06/06/22 10/22/24 10/22/24 Rx mcg/actuation nasal spray,suspension (Flonase Allergy Relief) electric motorized scooter #1 ea 01/24/23 09/07/24 Unknown Rx calcium 600 mg (as 1 tab PO DAILY 08/04/23 10/22/24 10/22/24 History carbonate)-vitamin D3 5 mcg (200 unit) tablet shoulder immobilizer #1 ea 08/14/23 09/07/24 Unknown Rx RIGHT ankle AFL hard plastic brace #1 ea 08/29/23 09/07/24 Unknown Rx levothyroxine 125 mcg tablet 125 mcg PO DAILY #90 tabs 03/03/24 10/22/24 10/22/24 Rx citalopram 40 mg tablet 40 mg PO DAILY #90 tabs 05/07/24 10/22/24 10/22/24 Rx ezetimibe 10 mg tablet 10 mg PO DAILY #90 tabs 05/11/24 10/22/24 10/22/24 Rx diclofenac sodium 1 % topical gel 2 g topical BID 30 days #100 grams 06/02/24 10/22/24 Unknown Rx (Voltaren Arthritis Pain) pantoprazole 40 mg tablet,delayed 40 mg PO DAILY #90 tabs 06/11/24 10/22/24 10/22/24 Rx release umeclidinium 62.5 mcg/actuation 1 inh inhalation DAILY 30 days #30 08/11/24 10/22/24 10/22/24 Rx blister powder for inhalation ea ([employer]) fluticasone propionate 115 2 puff inhalation BID #12 grams 10/12/24 10/22/24 10/22/24 Rx mcg-salmeterol 21 mcg/actuation HFA inhaler (Advair HFA) clopidogrel 75 mg tablet 75 mg PO DAILY 10/22/24 10/22/24 10/05/24 History diltiazem HCl 360 mg 720 mg PO DAILY 10/22/24 10/22/24 10/22/24 History capsule,extended release 24 hr losartan 25 mg tablet 25 mg PO DAILY 10/22/24 10/22/24 10/22/24 History Allergies Allergy/AdvReac Type Severity Reaction Status Date / Time Tetanus Vaccines and Toxoid Allergy Unknown Unknown Verified 09/07/24 07:12 mepivacaine (From Carbocaine) Allergy unknown Verified 09/07/24 07:12 Penicillins Allergy ALGY-Rash Verified 09/07/24 07:12 Sulfa (Sulfonamide Allergy ALGY-Rash Verified 09/07/24 07:12 Antibiotics) tetanus toxoid, adsorbed Allergy ALGY-Anaphy Verified 09/07/24 07:12 laxis PFSH PFSH: Medical History Hypothyroidism Stroke Chronic GERD History of CVA (cerebrovascular accident) Arrhythmia Stroke GERD (gastroesophageal reflux disease) Hypertension Graves disease Sarcoidosis of lung Thyroid nodule History of colon polyps Surgical History Hx of thyroidectomy Hx of hysterectomy Hx of foot surgery Family History Grandfather CAD (coronary artery disease) Cancer lung cancer Diabetes Hyperlipidemia Grandmother Diabetes Hyperlipidemia Father Hyperlipidemia Lung disease Mother Hyperlipidemia Hypertension Denies family history of Clotting disorder Dementia Chronic kidney disease (CKD) Anesthesia complication Bleeding disorder Stroke Social History Smoking and tobacco/nicotine status: never used tobacco/nicotine Second hand smoke exposure: No Alcohol intake: never Substance/Drug Use: never Adopted: No Caregiver/support person: No Lives independently: Yes Household members: children Marital status: Current occupational status: retired Current gender identity: Female Dietary Habits: Caffeine: Yes Caffeine intake frequency: carbonated beverages Vital Signs Vitals Signs: Last Vital Signs Temp 97.1 F L 10/23/24 06:46 Pulse 72 10/23/24 06:46 Resp 18 10/23/24 06:46 BP 133/63 10/23/24 06:46 Pulse Ox 97 10/23/24 06:46 O2 Del Method Room Air 10/23/24 06:46 Weight: Weight last 48 hrs Weight 145 lb Physical Exam Narrative: EXAM NARRATIVE: GENERAL: Patient is alert and oriented ?3 and in no acute distress. The following is a focused bilateral lower extremity exam. VASCULAR: Dorsalis pedis and posterior tibial arteries palpable. Capillary refill time less than 3 seconds to the distal hallux bilaterally. Calf is supple and nontender proximally and distally. No pedal edema appreciated. Pedal hair growth present. NEUROLOGICAL: Epicritic and protopathic sensations grossly intact to the lower extremities. +2 Achilles tendon reflex noted bilaterally. Negative Tinel sign upon percussion of lower extremity nerves. DERMATOLOGICAL: Friction irritation at medial aspect of right first metatarsal phalangeal joint, no wound. MUSCULOSKELETAL: Bilateral bunion and bilateral hallux rigidus, first metatarsophalangeal joint dorsiflexion is 0 degrees of the right and 45 degrees of the left with osseous end range of motion. Tenderness to palpation first metatarsophalangeal joint bilaterally. Exquisite tenderness to palpation right bunion deformity is track bound. Decreased dorsiflexion right ankle able to obtain neutral with knee extended and flexed. It is difficult to get neutral, takes significant force. CARDIOVASCULAR: S1, S2, normal rate, normal rhythm. Dorsalis pedis and posterior tibial arteries palpable. LUNGS: Clear to auscltation, no use of acessory muscles, no crackles or wheezes. Data 10/23/24 07:04 10/23/24 07:04 A&P Assessment and plan (1) Bilateral bunions: (2) Equinus contracture of ankle: (3) Hallux rigidus of right foot: Plan 74-year-old female with a history of bilateral bunion deformity and hallux rigidus, compounded by a history of stroke and resulting equinus deformity, presents for surgical options on her right foot, primarily due to persistent pain and mechanical dysfunction. 1. Bilateral Bunion Deformity Consider a surgical intervention such as a Weiss bunionectomy for right foot due to persistent pain and deformity, with added Achilles tendon lengthening to address equinus and improve forefoot load distribution. A six-week recovery with reduced weight-bearing and activity limits is detailed, alongside interim use of a surgical boot. 2. Achilles Tendon Equinus Consider Achilles tendon lengthening procedure concurrent with bunionectomy to reduce plantar pressure and aid in ankle dorsiflexion improvement post-surgery. 3. Bilateral Bunion Pain Pain predominantly in the right foot requiring interventions including surgical correction. Continued exploration of non-surgical management through proper footwear recommended until surgery can be performed. 4. Cerebral Vascular Accident History Of Stroke Continue managing sequelae with current walking aids. Evaluate the necessity of continued anticoagulation therapy pre and post-surgery under cardiology guidance. 5. Hallux Rigidus Surgical intervention likely for right foot. The goal is to alleviate pain from joint stiffness via arthroplasty components or other corrective measures discussed, pending orthopaedic surgical assessment and intervention. - Plan and prepare for the surgery keeping a six-week recovery period in mind; ensure arrangements for reduced activity post-procedure. - Maintain use of appropriate footwear with adequate toe room and padding until surgical intervention. - Continue prescribed anticoagulant medication unless advised otherwise prior to surgery. - Elevate the foot during the initial recovery phase post-surgery, especially when stationary. Given the patient?s significant right foot bunion deformity and limited joint mobility, surgical intervention is necessary due to ineffectiveness of conservative measures. The coherence between equinus and bunion complications necessitates a dual-procedure of Weiss bunionectomy and Achilles tendon lengthening, optimizing postoperative mobility. The anticipated benefit is reduced forefoot load and enhanced range of motion, particularly in the stance phase of gait. The immediate postoperative period will require careful anticoagulation management, guided by cardiology protocols. Long-term benefits of surgery include improved ambulation, pain relief, and prevention of further deformity. This plan was decided upon considering the chronicity and impact on daily activities, and aligns with the treatment goals to restore function and alleviate pain. I reviewed at length with the patient, the risks, potential complications, benefits, alternatives, expectations, and typical outcomes associated with the surgery. The risks and potential complications were explained in detail, including but not limited to infection, wound dehiscence or soft tissue complications, bleeding and hematoma, chronic edema, neuritis or nerve damage producing numbness or chronic pain, CRPS, failure to relieve pain or worsening pain, thick / painful / unsightly scar, limited motion / stiffness, malposition, delayed union, malunion, or nonunion, fracture, reaction to implants, anesthetic complications, venous thromboembolism, and deformity recurrence. I discussed the notion of no regrets with the patient as it pertains to complications and outcomes. The patient seemed to understand the nature of the proposed care and required convalescence. They asked appropriate questions, answered to their satisfaction. They are aware no guarantees can be made as to a satisfactory outcome and they understand there may be other possible unforeseen complications or outcomes not listed here that will be treated accordingly if they arise. There were no written or implied guarantees given to the patient. They gave informed consent to proceed. PDMP PDMP Reviewed: Not Reviewed Coding Level of Care Code Acute Code for g Fwd Diagnoses Bilateral bunions M21.611; M21.612 Equinus contracture of ankle M24.573 Hallux rigidus of right foot M20.21
--- NOTE | 2024-10-23 07:21 | W.PM.OPSUD ---
Surgery/Procedure H&P Update DATE OF PROCEDURE: October 23, 2024 DATE H&P PERFORMED: 10/23/24 H&P UPDATE INFORMATION: I have reviewed H&P completed within last 30 days, I have examined patient prior to procedure, No changes to prior documentation and H&P is in [facility] [place] EMR on date indicated PREOP DIAGNOSIS: Right bunion and ankle equinus. PLANNED PROCEDURE: Operation Date: 10/23/24 08:00 Proposed Procedures p Bunionectomy Weiss(Right) - Geovani Prater DPM s Gastrocnemius Recession(Right) - Geovani Prater DPM
--- NOTE | 2024-10-23 07:27 | PM.OP ---
Operative Report Date of procedure: October 23, 2024 Pre-op diagnosis: Pain in both feet M79.671; M79.672 Hallux rigidus of both feet M20.21; M20.22 Bilateral bunions M21.611; M21.612 Equinus deformity of right foot M21.6X1 Post-op diagnosis: Pain in both feet M79.671; M79.672 Hallux rigidus of both feet M20.21; M20.22 Bilateral bunions M21.611; M21.612 Equinus deformity of right foot M21.6X1 Procedure done: 1) right Weiss bunionectomy. CPT code 30680 2) right Achilles lengthening. CPT code 39623 Implants: 3-0 Vicryl, 4-0 Vicryl, 4 nylon Specimens removed/disposition: None Pathology: None Surgeon: Geovani Prater DPM [employer] Lieutenant: Conrad Estimated blood loss: 2 22 IV fluids: See intraoperative documentation Urine output: None Complications: No complications Brief History: Given the patient?s significant right foot bunion deformity and limited joint mobility, surgical intervention is necessary due to ineffectiveness of conservative measures. The coherence between equinus and bunion complications necessitates a dual-procedure of Weiss bunionectomy and Achilles tendon lengthening, optimizing postoperative mobility. The anticipated benefit is reduced forefoot load and enhanced range of motion, particularly in the stance phase of gait. The immediate postoperative period will require careful anticoagulation management, guided by cardiology protocols. Long-term benefits of surgery include improved ambulation, pain relief, and prevention of further deformity. This plan was decided upon considering the chronicity and impact on daily activities, and aligns with the treatment goals to restore function and alleviate pain. I reviewed at length with the patient, the risks, potential complications, benefits, alternatives, expectations, and typical outcomes associated with the surgery. The risks and potential complications were explained in detail, including but not limited to infection, wound dehiscence or soft tissue complications, bleeding and hematoma, chronic edema, neuritis or nerve damage producing numbness or chronic pain, CRPS, failure to relieve pain or worsening pain, thick / painful / unsightly scar, limited motion / stiffness, malposition, delayed union, malunion, or nonunion, fracture, reaction to implants, anesthetic complications, venous thromboembolism, and deformity recurrence. I discussed the notion of no regrets with the patient as it pertains to complications and outcomes. The patient seemed to understand the nature of the proposed care and required convalescence. They asked appropriate questions, answered to their satisfaction. They are aware no guarantees can be made as to a satisfactory outcome and they understand there may be other possible unforeseen complications or outcomes not listed here that will be treated accordingly if they arise. There were no written or implied guarantees given to the patient. They gave informed consent to proceed. Procedure: Under mild sedation the patient was brought to the operating room and remained on the gurney in supine position. A timeout was performed. Anesthesia was then administered by the anesthesia service. Local anesthesia was injected by myself consisting of 1% lidocaine plain in a V-block to the right posterior leg and right Escudero block. Well-padded pneumatic tourniquet applied to the right high calf. The right lower extremity was then scrubbed, prepped and draped utilizing normal aseptic technique. Right foot and ankle were then exanguinated with an Esmarch bandage and tourniquet inflated to 250 mmHg. Attention was directed to the right ankle which was dorsiflexed and noted to be in an equinus position was able to dorsiflex to neutral with significant resistance. Patient would be better served with a Achilles lengthening to address her equinus contracture this was discussed in clinic as well as preoperatively. 15 blade was utilized to perform a triple hemisection most distal was medial Brijesh section intermediate incision was lateral hemisection and most proximal was medial Brijesh section 1.5 cm apart starting 3 cm proximal to insertion of the right Achilles with an obvious release and dorsiflexion approximately 8 degrees beyond neutral achieved intraoperatively and able to palpate the Achilles tendon still intact the incisions were irrigated and closed with 4-0 nylon with OpSite covering. Attention was then directed to the right bunion deformity where a dorsal medial incision was performed at the first metatarsal phalangeal joint through skin with #15 blade with dissection carried down through subcutaneous tissue to the layer periosteum utilizing a sharp and blunt technique. Care was taken to retract and preserve neurovascular and tendinous structures. All bleeders were ligated and cauterized as necessary. Capsular and periosteal incision was performed in the head of the first metatarsal and base of the proximal phalanx of the right first metatarsophalangeal joint were freed from their soft tissue and capsular attachments. Remodeling of first metatarsal head was performed sharply as well as with oscillating saw all rough edges were smoothed. Resection of the first metatarsal base was performed transversely with a sagittal saw and all rough edges smoothed. The incision was irrigated saline solution, reduction of the bunion deformity and improve dorsiflexion range of motion at the first metatarsal phalange joint the right foot was appreciated. Capsular closure was performed with 3-0 Vicryl, subcutaneous tissue reapproximated 4-0 Vicryl and skin with 4-0 nylon. Intraoperative C arm utilized to confirm correction in the AP oblique and lateral view which was satisfactory. Incisions were incision was dressed with Xeroform sterile gauze Kerlix and Krishna wrap. Well-padded multilayer compressive posterior splint applied to the right lower extremity in neutral position of the ankle and foot. Tourniquet was deflated and a prompt hyperemic response is noted to the distal digits of the right foot. Patient tolerated the procedure and anesthesia well and was transferred to the PACU with vital signs stable and vascular status intact. Following a period of postoperative monitoring she will be discharged home without home care instructions and scheduled follow-up is to be nonweightbearing for the next 6 weeks.
[2024-10-23 07:33] LABS: Blood Urea Nitrogen 17 mg/dL (8-23); Calcium 8.8 mg/dL (8.5-10.5); Carbon Dioxide 26 mmol/L (22-29); Chloride 104 mmol/L (98-107); Creatinine Clr Calc Pharmacy 49.2966; Glucose 115 mg/dL (65-115); Osmolality Calculated 294 mOsm/kg (285-295); Sodium 141 mmol/L (136-145)
--- NOTE | 2024-10-23 08:01 | P.ANESASSM_ITS ---
Pre-Anesthetic Assessment Height/Weight: Height 1.7 m Weight 65.771 kg Temp Pulse Resp BP Pulse Ox O2 Del Method 97.1 F L 72 18 133/63 97 Room Air 10/23/24 06:46 10/23/24 06:46 10/23/24 06:46 10/23/24 06:46 10/23/24 06:46 10/23/24 06:46 Preop Diagnosis: Right bunion and ankle equinus. Operation Date: 10/23/24 08:00 Proposed Procedures p Bunionectomy Weiss(Right) - Geovani Prater DPM s Gastrocnemius Recession(Right) - Geovani Prater DPM Was Beta Sigifredo taken within 24 hours: Yes Was Clonidine taken within 24 hours: N/A Last intake: Intake Last Liquid Date 10/22/24 Last Liquid Time 19:00 Last Solid Date 10/22/24 Last Solid Time 19:00 Social No alcohol and No tobacco Exam alert, oriented x 3, clear to auscultation bilaterally and regular rate & rhythm Airway Submandibular: within normal limits Cervical ROM: within normal limits Mallampati: Class II Dentition: full History/ROS No significant history except as noted and No significant complaints Pulmonary Hx sarcoidosis 30 yrs CV/HEM Arrythmia and Hypertension None reported Hepatic None reported GI Gastroesophageal Reflux Disease GERD treated Metabolic Thyroid Disease H[place] [facility] [place] Osteoarthritis/DJD Neuropsych Cerebrovascular Accident R side weaker Anesthetic Plan ASA status: 3 Anesthesia: Anesthesia Evaluation and General Risk of > 500 ml blood loss (7ml/kg in children): No Medications/Allergies Home Medications ?Medication ?Instructions ?Recorded ?Confirmed ?Last Taken ?Type ascorbate calcium (vitamin C) 500 500 mg PO DAILY 05/2610/22/24 10/22/24 History mg tablet cetirizine 10 mg capsule (All Day 10 mg PO DAILY #90 c aps 06/06/22 10/22/24 10/22/24 Rx Allergy (cetirizine)) fluticasone propionate 50 2 spray intranasal DAILY #16 grams 06/06/22 10/22/24 10/22/24 Rx mcg/actuation nasal spray,suspension (Flonase Allergy Relief) electric motorized scooter #1 ea 01/24/23 09/07/24 Unk nown Rx calcium 600 mg (as 1 tab PO DAILY 08/04/2309/2710/22/24 History carbonate)-vitamin D3 5 mcg (200 unit) tablet shoulder immobilizer #1 ea 08/14/23 09/07/24 Unkn own Rx RIGHT ankle AFL hard plastic brace #1 ea 08/29/2308/26 Unknown Rx levothyroxine 125 mcg tablet 125 mcg PO DAILY #90 tabs 03/03/24 10/22/24 10/22/24 Rx citalopram 40 mg tablet 40 mg PO DAILY #90 tabs 04/2610/22/24 10/22/24 Rx ezetimibe 10 mg tablet 10 mg PO DAILY #90 tabs 04/2610/22/24 10/22/24 Rx diclofenac sodium 1 % topical gel 2 g topical BID 30 d ays #100 grams 06/02/24 10/22/24 Unknown Rx (Voltaren Arthritis Pain) pantoprazole 40 mg tablet,delayed 40 mg PO DAILY #90 t abs 06/11/24 10/22/24 10/22/24 Rx release umeclidinium 62.5 mcg/actuation 1 inh inhalation DAILY 30 days #30 08/11/24 10/22/24 10/22/24 Rx blister powder for inhalation ea (Inctranse Javi) fluticasone propionate 115 2 puff inhalation BID #12 g jose luis 10/12/24 10/22/24 10/22/24 Rx mcg-salmeterol 21 mcg/actuation HFA inhaler (Advair HFA) clopidogrel 75 mg tablet 75 mg PO DAILY 10/22/2409/2710/05/24 History diltiazem HCl 360 mg 720 mg PO DAILY 10/22/2410/22/24 History capsule,extended release 24 hr losartan 25 mg tablet 25 mg PO DAILY 10/22/2409/2710/22/24 History hydrocodone 10 mg-acetaminophen 1 tab PO Q6H PRN pain 7 days #28 10/23/24 Unknown Rx 325 mg tablet tabs Allergies Allergy/AdvReac Type Severity Reaction Status Date / Time Tetanus Vaccines and Toxoid Allergy Unknown Unknown Verified 09/07/24 07:12 mepivacaine (From Carbocaine) Allergy unknown Verified 09/07/24 07:12 Penicillins Allergy ALGY-Rash Verified 09/07/24 07:12 Sulfa (Sulfonamide Allergy ALGY-Rash Verified 09/07/24 07:12 Antibiotics) tetanus toxoid, adsorbed Allergy ALGY-Anaphy Verified 09/07/24 07:12 laxis Current Medications Generic Name Dose Route Start Last Admin Trade Name Freq PRN Reason Stop Dose Admin Sodium Chloride 1,000 mls @ 30 mls/hr 10/23/24 06:45 10/23/24 06:58 Sodium Chloride 0.9% IV 10/24/24 06:44 30 mls/hr .Q24H AUDIE Administration PFSH Anesthesia Medical History Hypothyroidism Stroke Chronic GERD History of CVA (cerebrovascular accident) Arrhythmia Stroke GERD (gastroesophageal reflux disease) Hypertension Graves disease Sarcoidosis of lung Thyroid nodule History of colon polyps Surgical History Hx of thyroidectomy Hx of hysterectomy Hx of foot surgery Family History Grandfather CAD (coronary artery disease) Cancer lung cancer Diabetes Hyperlipidemia Grandmother Diabetes Hyperlipidemia Father Hyperlipidemia Lung disease Mother Hyperlipidemia Hypertension Denies family history of Clotting disorder Dementia Chronic kidney disease (CKD) Anesthesia complication Bleeding disorder Stroke Social History Smoking and tobacco/nicotine status: never used tobacco/nicotine Second hand smoke exposure: No Alcohol intake: never Substance/Drug Use: never Adopted: No Caregiver/support person: No Lives independently: Yes Household members: children Marital status: Current occupational status: retired Current gender identity: Female Data Anesthesia 10/23/24 07:04 10/23/24 07:04 Short CBC 10/23/24 Range/Units 07:04 WBC 7.12 (3.29-11.43) 10^3/uL Hgb 12.50 (11.27-16.99) g/dL Hct 38.9 (36-47) % MCV 87.0 (85-98) fl Plt Count 366 (157-399) 10^3/cmm Neut % (Auto) 71.7 % Neut # (Auto) 5.10 (1.8-7.7) 10^3/uL BMP 10/23/24 07:04 Sodium 141 Potassium 4.0 Chloride 104 Carbon Dioxide 26 BUN 17 Creatinine 1.0 H Glucose 115 Calcium 8.8 Cardiac Studies: 2 Echocardiogram 01/30/22 Holter Monitor 01/08/22
[2024-10-23] MEDS: clindamycin 600 MG/50 ML PREMIX 100 MG IV (08:03)
[2024-10-23] MEDS: lidocaine 1% 10 ML INJ 30 ML INJECTION (08:36)
[2024-10-23] MEDS: lidocaine-epi 1% 20 mL INJ 10 ML INJECTION (08:37)
--- NOTE | 2024-10-23 08:53 | P.BOP_ITS ---
Date of Procedure: 11/08/23 Surgeon: Geovani Prater DPM [employer] Operator(s): Conrad Procedure(s) performed: Right tendo Achilles lengthening and right tailor bunionectomy Findings of the procedure(s): None Estimated blood loss: 2 mL Specimen(s) removed: No specimens removed. Post-operative diagnosis: Right ankle equinus and right bunion and right hallux rigidus.
--- NOTE | 2024-10-23 13:49 | ANE.PACU2 ---
Inpatient post-anesthesia follow up: Airway intact: Yes Vital signs: Temperature 97.2 F Pulse Rate 70 Respiratory Rate 18 Blood Pressure 138/76 Pulse Oximetry 96 Oxygen Delivery Me thod Room Air Oxygen Flow Rate Fraction of Inspir ed Oxygen Hydration adequate: Yes Nausea and vomiting: No Pain level: 1 Mental status: Baseline
== END 2024-10-23 09:50 | disposition home or self-care (01) ==
PROVIDERS: Student in an Organized Health Care Education/Training Program; PCP Family Medicine; Visit Provider Podiatrist Foot & Ankle Surgery
PROC: (CPT 28292; principal; 2024-10-23 08:00)
PROC: (CPT 27687; 2024-10-23 08:00)
DX: M20.21 Hallux rigidus, right foot (principal); M21.611 Bunion of right foot; M20.22 Hallux rigidus, left foot; M21.612 Bunion of left foot; M21.6X1 Other acquired deformities of right foot; K21.9 Gastro-esophageal reflux disease without esophagitis; Z86.73 Personal history of transient ischemic attack (TIA), and cerebral infarction without residual deficits; Z79.899 Other long term (current) drug therapy; Z79.890 Hormone replacement therapy; Z88.2 Allergy status to sulfonamides; Z88.0 Allergy status to penicillin; Z88.7 Allergy status to serum and vaccine; E89.0 Postprocedural hypothyroidism; M24.571 Contracture, right ankle
CPT/HCPCS: 28292; 27685; 73630; 76000; 80048; 85025; J2704; J3010; J3490; J7030

== ENCOUNTER 2024-11-05 16:37 | Outpatient (CLI) | payer MEDICARE, MEDICAID, SELFPAY | END 2024-11-05 16:38 | disposition home or self-care (01) | LOC: SPT 16:38 | PROVIDERS: PCP Family Medicine; Visit Provider Podiatrist Foot & Ankle Surgery | DX: Z47.89 Encounter for other orthopedic aftercare (principal) | CPT/HCPCS: 97760; 99024; L4361 ==

== ENCOUNTER → 2024-11-19 12:50 | Outpatient (BNVA) | payer MEDICARE, MEDICAID, SELFPAY | PROVIDERS: PCP Family Medicine; Visit Provider Podiatrist Foot & Ankle Surgery | DX: Z98.890 Other specified postprocedural states (principal) | CPT/HCPCS: 73630; 99024 ==

== ENCOUNTER → 2025-05-07 14:07 | Outpatient (BNVA) | payer MEDICARE, MEDICAID, SELFPAY | PROVIDERS: PCP Family Medicine; Visit Provider Family Medicine | DX: E78.5 Hyperlipidemia, unspecified (principal) | CPT/HCPCS: 80053; 80061; 83721; 84439; 84443 ==

== ENCOUNTER 2025-05-13 12:19 | Outpatient (CLI) | payer MEDICARE, MEDICAID, SELFPAY ==
[2025-05-13 13:24] LABS: Alanine Aminotransferase 11 U/L (0-33); Albumin Level 4.2 g/dL (3.5-5.2); Alkaline Phosphatase 141 U/L (35-105); Aspartate Amino Transferase 14 U/L (0-32); Blood Urea Nitrogen 19 mg/dL (8-23); Calcium 9.3 mg/dL (8.5-10.5); Carbon Dioxide 27 mmol/L (22-29); Chloride 105 mmol/L (98-107); Cholesterol 225 mg/dL (0-200); Free T4 Free Thyroxine 1.11 ng/dL (0.82-1.77); Globulin 2.8 g/dL (1.3-4.6); Glucose 103 mg/dL (65-115); HDL Cholesterol 49 mg/dL (60-100); Osmolality Calculated 303 mOsm/kg (285-295); Sodium 145 mmol/L (136-145); Thyroid Stimulating Hormone 26.66 uIU/mL (0.27-4.20); Total Protein 7.0 g/dL (6.6-8.7); Triglycerides 236 mg/dL (0-150)
[2025-05-13 13:25] LABS: Anion Gap 16.0 (5-19); Potassium 3.0 mmol/L (3.5-5.1)
== END 2025-05-13 12:20 | disposition home or self-care (01) ==
LOC: LAB 12:20
PROVIDERS: PCP Family Medicine; Visit Provider Family Medicine
DX: I10 Essential (primary) hypertension (principal); E03.9 Hypothyroidism, unspecified
CPT/HCPCS: 36415; 80053; 80061; 84439; 84443

== ENCOUNTER 2025-06-23 20:09 | Outpatient (CLI) | payer MEDICARE, MEDICAID, SELFPAY | END 2025-06-23 20:10 | disposition home or self-care (01) | LOC: SLEEP 20:14 | PROVIDERS: PCP Family Medicine; Referring Provider Otolaryngology; Visit Provider Internal Medicine Pulmonary Disease | DX: G47.33 Obstructive sleep apnea (adult) (pediatric) (principal); G47.36 Sleep related hypoventilation in conditions classified elsewhere | CPT/HCPCS: 95810 ==

== ENCOUNTER → 2025-07-16 11:09 | Outpatient (BNVA) | payer MEDICARE, MEDICAID, SELFPAY | PROVIDERS: PCP Family Medicine; Visit Provider Family Medicine | DX: E05.00 Thyrotoxicosis with diffuse goiter without thyrotoxic crisis or storm (principal) | CPT/HCPCS: 80048; 84439; 84443 ==